=== PATIENT | female | born 1975 | race Caucasian/White ===

== ENCOUNTER 2019-09-26 15:50 | Outpatient (CLI) | payer OTHER | END 2019-09-26 16:00 | disposition home or self-care (01) | LOC: RAD 15:50 | DX: J20.8 Acute bronchitis due to other specified organisms (principal) ==

== ENCOUNTER 2019-09-26 16:23 | Outpatient (CLI) | payer OTHER | END 2019-09-26 16:34 | disposition home or self-care (01) | LOC: LAB 16:23 | DX: J20.8 Acute bronchitis due to other specified organisms (principal); R05 Cough; J18.8 Other pneumonia, unspecified organism ==